=== PATIENT | female | born 1975 | race Caucasian/White ===

== ENCOUNTER 2024-10-01 03:42 | Emergency (ER) | payer OTHER, SELFPAY ==
[2024-10-01 03:53] VITALS: BMI 30.1
[2024-10-01 03:54] VITALS: BP 112/60
[2024-10-01 04:40] LABS: % Basophils 0.1 % (0-2); % Immature Granulocytes 0.3 % (0-0.5); % Lymphocytes 11.9 % (20.5-51.1); % Monocytes 5.6 % (1.7-9.3); % Neutrophils 82.1 % (42.2-75.2); Absolute Lymphocytes 0.9 10^3/uL (1.2-3.4); Absolute Monocytes 0.4 10^3/uL (0.1-0.6); Absolute Neutrophils 5.9 10^3/uL (1.4-6.5); Hematocrit 34.4 % (37.0-47.0); Hemoglobin 11.9 g/dL (12.0-16.0); Mean Corp Hgb Conc. 34.6 g/dL (33.0-37.0); Mean Corpuscular Hgb 33.1 pg (27.0-31.0); Mean Corpuscular Volume 95.6 fL (81.0-99.0); Mean Platelet Volume 9.3 fL (7.4-10.4); Nucleated Red Blood Cells % 0 %; Platelet Count 174 10^3/uL (130-400); Red Cell Dist. Width 13.1 % (11.5-14.5); White Blood Cell Count 7.2 10^3/uL (4.8-10.8)
[2024-10-01 04:43] LABS: COVID-19 Antigen Negative (Negative)
[2024-10-01 04:57] LABS: ALT (SGPT) 15 U/L (0-35); AST (SGOT) 25 U/L (14-36); Alkaline Phosphatase 73 U/L (38-126); Blood Urea Nitrogen 12 mg/dl (7-17); Calcium 8.5 mg/dl (8.4-10.2); Carbon Dioxide 24 mmol/L (22-30); Chloride 95 mmol/L (98-107); Estimated Creatinine Clearance 98 ml/min; Glucose 104 mg/dl (70-99); Potassium 4.3 mmol/L (3.5-5.1); Sodium 129 mmol/L (135-145); Total Bilirubin 0.6 mg/dl (0.2-1.3); Total Protein 6.8 g/dl (6.3-8.2); eGFR > 60.00
[2024-10-01] MEDS: TYLENOL 1000 MG PO (05:16)
--- NOTE | 2024-10-01 05:43 | ED.GENMED ---
History of Present Illness
General
Chief Complaint: Cough
Source: patient and ambulance crew
Time Seen by Provider: 10/01/24 03:47
Nursing documentation reviewed up to this point in time: agreed with
History of Present Illness
History of Present Illness:
This a 48-year-old female presents to the emergency department with cough and painful inspiration for the last 2 days. She states that symptoms have been progressively worsening. She does report having fever earlier in the day. She took ibuprofen
at home. Upon arrival, she was tested for influenza. She did come back positive for flu.
Vital signs are stable. Patient not hypoxic
Nursing note reviewed. I agree with nursing documentation up to this point in time.
Home Meds and allergies reviewed.
NUMBER AND COMPLEXITY OF PROBLEMS ADDRESSED AT THE ENCOUNTER
� Chronic conditions affecting care: HIV, anxiety, bipolar
� Acute Exacerbation and/or Progression of Chronic Illness: Influenza positive which is an acute condition
� Differential Diagnosis includes: Pleuritic chest pain, rib fracture, sprain and intercostal muscle
AMOUNT AND/OR COMPLEXITY OF DATA TO BE REVIEWED AND ANALYZED
I performed an independent evaluation of the following and my interpretation is:
EKG:
Pulse Ox: Not Hypoxic
Hogshead Hand: Sinus Rhythm
CT:
X-rays:
Ultrasound:
Laboratory Studies:
Other:
Review of other/old records:
Clinical information was obtained by an independent historian:
Prescriptions/Medications Considered but not given:
Further testing considered but not performed:
RISK OF COMPLICATIONS AND/OR MORBIDITY OR MORTALITY OF PATIENT MANAGEMENT
Social determinants of health affecting care: Good Social Support
Discussion with other providers:
Escalation of care including admission/observation vs risk of discharge considered: After being observed in the emergency department, patient is stable for discharge.
CRITICAL CARE NOTE:
Total Time (exclusive of procedures):
Update:
Phy Exam
Physical Exam
Physical Exam:
Physical Exam
Vital signs and allergy list reviewed and agreed with.
GENERAL: Alert , in minimal to moderate apparent distress
EYE: pupils equal, EOMI, anicteric
NECK: Supple, no significant adenopathy. No masses. Trachea midline
ENT: Oropharynx is clear, mmm.
CARDIAC: Regular rate and rhythm . No M/R/G
LUNGS: Clear breath sounds bilaterally, no acute respiratory distress, no wheezes/rales/rhonchi
ABDOMEN: Soft, without focal tenderness, no r/g, no cvat. Normal BSx4q
NEUROLOGICAL: Alert and oriented, no focal neuro deficits
SKIN: Warm and dry, skin intact.
MUSCULOSKELETAL: No edema, well perfused. Moves all 4 extremities
PSYCH: Normal and appropriate interaction.
Course
Orders/Labs/Results
Orders:
Orders
10/01/24 04:24
COVID-19 Antigen Urgent
Source: Nasal Swab
Complete Blood Count/With Diff Urgent
Comprehensive Metabolic Panel Urgent
Influenza A+B Rapid Molecular Urgent
JOHN Source: Nasal Swab
Specimen Description:
10/01/24 04:30
Chest [CR Chest - 2 Views ] Urgent
Comment:
Reason For Exam: Pain / Cough
10/01/24 04:48
Ipratropium/Albuterol Sulfate [Duoneb] 3 ml INH R NOW ONE
10/01/24 04:49
Acetaminophen [Tylenol] 1,000 mg PO NOW STA
10/01/24 06:08
EKG- Treatment ONCE
Abnormal Lab Results
10/01/24
04:24
RBC 3.60 L 10^6/uL
(4.20-5.40)
Hgb 11.9 L g/dL
(12.0-16.0)
Hct 34.4 L %
(37.0-47.0)
MCH 33.1 H pg
(27.0-31.0)
Absolute Lymphs (auto) 0.9 L 10^3/uL
(1.2-3.4)
Neutrophils % 82.1 H %
(42.2-75.2)
Lymphocytes % 11.9 L %
(20.5-51.1)
Sodium 129 L mmol/L
(135-145)
Chloride 95 L mmol/L
(98-107)
Glucose 104 H mg/dl
(70-99)
10/01/24 04:24
10/01/24 04:24
Vital Signs
Initial and Last Documented VS:
Initial Vital Signs
Pulse Resp
88 25
10/01/24 03:48 10/01/24 03:48
Last Documented Vital Signs
Temp Pulse Resp BP Pulse Ox
99.8 F 78 14 112/60 97
10/01/24 03:55 10/01/24 04:30 10/01/24 04:15 10/01/24 03:54 10/01/24 04:30
*Radiology
Radiology exam reviewed: preliminary read by ED provider
*Pulse Oximetry
Patient hypoxic: no
*Critical Care Note
Total Time (30-74mins, 75-104mins- exclusive of procedures): Not Applicable
Update Note
Update Note:
Discussed lab work and x-ray with patient. She wishes to be discharged. At this time we discussed having a CAT scan and she states that she does not want any further imaging. I did discuss the possibility of pulmonary embolus versus pleurisy
versus occult rib fracture not seen on x-ray. She states that she wishes to be discharged and will return should her pain worsen. Currently, her pain seems to be more controlled after taking Tylenol.
Patient will not allow us to perform an EKG. We discussed with her that since she is having chest pain, an EKG is paramount to getting a proper diagnosis. She refused. Nursing also requested this EKG. She still refused. Patient being discharged.
ED Attending Note
-
Portions of this chart may have been created with voice recognition software.� Occasional wrong word or��sound alike� substitutions may have occurred due to the inherent limitations of voice recognition software.
Discharge Plan
Departure
Patient Disposition: Home (Routine Discharge)
Date of Disposition: 10/01/24
Time of Disposition: 06:22
Patient with high blood pressure during this ER visit?: No
Condition: Good
Discharge Problem:
Influenza A, Cough, Acute hyponatremia
Instructions: Cough, Adult (DC), Hyponatremia, Flu in adults - ED discharge instructions
Referrals:
[facility] [Outside]
[facility] [Outside]
UNKNOWN - PT DOES,NOT KNOW [Family Provider] -
Activity Restrictions/Additional Instructions:
It was a pleasure meeting you and taking part in your care. We hope for your continued healing and wellness.
Please read discharge instructions in their entirety. However, they are for general education and may not describe your exact diagnosis at discharge. Information on your ER visit and medical conditions were discussed with you along with appropriate
follow up information...
If indicated, please take your medications as instructed and indicated on discharge paperwork.
Please schedule a follow up appointment as directed. Call to schedule an appointment
Please return to the emergency department with ANY change in, persisting, or worsening of symptoms. If any of your symptoms do not improve, or persist, or become more severe within 6-12 hours, please return to the emergency department for further
care.
Please return to the emergency department if you develop a headache, neck pain/stiffness, fever greater than 100.4F, chest pain, shortness of breath, persistent nausea, vomiting, slurred speech, difficulty walking, numbness/tingling, weakness, signs
of infection or any other symptoms that are worrisome to you.
If you have any questions or concerns please do not hesitate to call the Hospital at
Interventions
Interventions:
*Risk Screen - Suicide Last Done: 10/01/24 04:02
*General Assessment Last Done: 10/01/24 04:00
*Neglect/Abuse Screening Last Done: 10/01/24 04:02
*ED COVID-19 Vaccine History Last Done: 10/01/24 04:00
*Nursing Disposition Last Done: 10/01/24 06:58
ED- Pulmonary Assessment Last Done: 10/01/24 04:02
Discharge Date and Time
Discharge Date/Time: 10/01/24 06:58
Print Language: GEORGIAN
== END 2024-10-01 06:58 | disposition home or self-care (01) ==
LOC: EMR 03:42
PROVIDERS: EMERGENCY PHYSICIAN Student in an Organized Health Care Education/Training Program
DX: J10.1 Influenza due to other identified influenza virus with other respiratory manifestations (principal); E87.1 Hypo-osmolality and hyponatremia; R05.9 Cough, unspecified; Z11.52 Encounter for screening for COVID-19
CPT/HCPCS: 99284; 94640; 71046; 80053; 85025; 87502; 87811